=== PATIENT | female | born 1965 | race Caucasian/White ===

== ENCOUNTER 2023-12-23 21:03 | Emergency (ER) | payer BC, SELFPAY ==
[2023-12-23 21:09] VITALS: BP 156/79; PULSE 97; TEMP 36.7; O2SAT 91; BMI 29.4
--- NOTE | 2023-12-23 21:16 | ED_ITS ---
HPI - Wound/Laceration General Chief Complaint: Wound/Laceration Stated Complaint: HEAD INJURY Time Seen by Provider: 12/23/23 21:10 Source: patient Mode of arrival: walk-in Limitations: no limitations History of Present Illness HPI narrative: 58-year-old female presents to the ER for evaluation of laceration to her scalp. Patient was at home when a metal aluminum level fell off a shelf and struck her in the head. She does not take any blood thinners. She denies any other head injury or loss of consciousness. No visual disturbance. She denies any nausea or vomiting. Bleeding controlled on arrival but a 3 cm linear laceration noted to the top of her head. Patient had a updated tetanus shot within the year. She denies any neck pain or other symptoms. Place: Reports home Patient tetanus UTD: Yes Context: Reports accidental Associated symptoms: Reports none Related Data Allergies Allergy/AdvReac Type Severity Reaction Status Date / Time Penicillins Allergy Unknown Unknown Verified 12/23/23 21:15 Review of Systems ROS Constitutional Denies: fever or chills Eyes Denies: change in vision Ears, nose, mouth, and throat Denies: throat pain or neck pain Cardiovascular Denies: chest pain or palpitations Respiratory Denies: shortness of breath Gastrointestinal Denies: abdominal pain or nausea Musculoskeletal Denies: back pain or neck pain Integumentary/Breast Denies: rash Neurological Denies: headache Psychiatric Denies: anxiety Exam Narrative Exam Narrative: Nurses notes and vital signs reviewed and patient is not hypoxic. General: The patient appears well and in no apparent distress. Patient is resting comfortably on cart. Skin: Warm, dry, no pallor noted. Head: Normocephalic, 3 cm linear scalp laceration to the top of the head. Bleeding controlled Neck: Supple, trachea mid-line, no tenderness, no lymphadenopathy Eye: Pupils are equal, round and reactive to light, EOMI Ears, Nose, Mouth, and Throat: TM are clear, normal light reflex, oral mucosa is moist, no posterior oropharynx erythema or hypertrophy, uvula is mid-line Cardiovascular: Regular Rate and Rhythm Respiratory: Patient is in no distress, no accessory muscle use, lungs are clear to auscultation, no wheezing, rales or rhonchi. Chest Wall: no tenderness Back: non-tender, no CVA tenderness Musculoskeletal: normal ROM, no tenderness, no swelling GI: Normal bowel sounds, no tenderness to palpation, no masses appreciated. No rebound, guarding, or rigidity noted. Neurological: A&O x4, gait is steady Psychiatric: Cooperative Constitutional Vital Signs, click to edit/add: Last Vital Signs Temp 98.1 F 12/23/23 21:09 Pulse 97 H 12/23/23 21:09 Resp 16 12/23/23 21:09 BP 156/79 H 12/23/23 21:09 Pulse Ox 91 L 12/23/23 21:09 Course Vital Signs Vital signs: Vital Signs Temperature 98.1 F 12/23/23 21:09 Pulse Rate 97 H 12/23/23 21:09 Respiratory Rate 16 12/23/23 21:09 Blood Pressure 156/79 H 12/23/23 21:09 Pulse Oximetry 91 L 12/23/23 21:09 Temperature 98.1 F 12/23/23 21:09 Pulse Rate 97 H 12/23/23 21:09 Respiratory Rate 16 12/23/23 21:09 Blood Pressure 156/79 H 12/23/23 21:09 Pulse Oximetry 91 L 12/23/23 21:09 MDM - Wound/Laceration MDM Narrative Medical decision making narrative: Patient presents with isolated scalp laceration from an object that was somewhat sharp falling off a shelf striking her in the head. She denies any loss of consciousness. Verbal and written close head injury instructions were discussed. Family at the bedside will be with her this evening. She is not short of breath and appears in no distress. Head imaging with CT discussed but does not require imaging with observation and benign exam. Patient agreeable to staple closure with follow-up to PCP for removal in 10 to 12 days. verbal and written head injury instructions discussed The patient is to followup with primary care physician in next 10-12 days or to return to the emergency department should any of the signs or symptoms worsen or new symptoms develop. Patient had questions answered. The patient agrees with the following Diagnosis and Treatment plan and the patient will be discharged home. Discharge Plan Discharge Chief Complaint: Wound/Laceration Clinical Impression: Laceration of scalp, Closed head injury Patient Disposition: Home, Self-Care Time of Disposition Decision: 21:22 Condition: Good Print Language: [place] Instructions: Laceration (ED), Head Injury (DC) Additional Instructions: Return to the ER or make appointment with your family doctor for staple removal in 10 to 12 days Referrals: Physician,Non-Staff, MD [Primary Care Provider] - 1 week Discharge Date/Time: 12/23/23 21:46 Procedures ED Laceration Laceration Laceration 1: Additional comments: Laceration repair: Done under sterile conditions. The use of Betadine was used to prep and clean the area. Top of scalp, Local injection with lidocaine 1% with epi was used, approximately 3 cc. The wound was irrigated copiously with normal saline. The wound was explored there was no evidence of foreign material. The laceration was approximated with gaurang . Patient tolerated the procedure well. The patient was neurovascularly intact post. the patient had bacitracin applied to the laceration and a dry sterile dressing was place. The patient will need to follow-up in the next 10-12 days for staple removal.
[2023-12-23] MEDS: LIDOCAINE HCL 1%-EPINEPHRINE 1:100,000 20 ML MDV 10 ML INJ (21:39)
[2023-12-23] MEDS: BACITRACIN 0.9 GM PACKET 1 PACKET TOPICAL (21:40)
== END 2023-12-23 21:46 | disposition home or self-care (01) ==
PROVIDERS: Emergency Provider Internal Medicine
DX: S01.01XA Laceration without foreign body of scalp, initial encounter (principal); S09.8XXA Other specified injuries of head, initial encounter; W22.8XXA Striking against or struck by other objects, initial encounter
CPT/HCPCS: 12002; 99282

== ENCOUNTER 2023-12-26 17:10 | Emergency (ER) | payer BC, SELFPAY ==
[2023-12-26] VITALS (46 sets, daily range): BP systolic 121–166; BP diastolic 49–88; PULSE 72–98; TEMP 36.8; O2SAT 84–96; BMI 29.4
--- NOTE | 2023-12-26 17:22 | CT_ITS ---
The [address] [address] Patient Name: ASHLEIGH ZHAO MRN: [id number] date: 1965 Sex: F Assigned Patient Location: ER Current Patient Location: ER Accession/Order Number: [id number] Exam Date: 12/26/2023 17:35 Report Date: 12/26/2023 18:13 At the request of: LANDRY HUMMEL Procedure: CT head/brain wo con EXAM: CT head/brain wo con, CT cervical spine wo con HISTORY: trauma COMPARISON: None. TECHNIQUE: Axial CT scans through the head and cervical spine were obtained without IV contrast administration. Dose reduction techniques were achieved by using: automated exposure control and/or adjustment of mA and /or kV according to patient size and/or use of iterative reconstruction technique. CT BRAIN FINDINGS: There is no evidence of acute intracranial hemorrhage or abnormal extra-axial fluid collection. No mass effect or midline shift is seen. There is no evidence of large acute territorial infarction. There is no hydrocephalus. No definite acute fracture is identified. Soft tissues are unremarkable. The visualized orbits show no abnormality. The visualized paranasal sinuses show no air-fluid level. Mastoid air cells are clear. CT/CT head/brain wo con IMPRESSION: No CT evidence of acute intracranial abnormality. CT CERVICAL SPINE FINDINGS: No acute fracture or posttraumatic malalignment is seen. The dens and lateral masses of C1 are symmetric. There is mild anterolisthesis of C5 on C6 and mild dextroscoliosis. Multilevel mild endplate, uncovertebral and facet arthrosis are seen. Findings are most pronounced at C5-6 level. There is minimal disc space narrowing at C5-6 level. Otherwise, the disc spaces are grossly preserved. At C3-C4 level, there is a small central/left paracentral disc protrusion. No significant spinal canal narrowing. There is neural foraminal narrowing, moderate at left C3-4 and mild at right C3-4, secondary to uncovertebral and facet arthropathy. At C4-5 level, there is a small central disc protrusion. No significant spinal canal narrowing. There is neural foraminal narrowing, moderate at left C4-5 and mild at right C4-5, secondary to uncovertebral and facet arthropathy. At C5-6 level, there is small posterior disc osteophyte complex. No significant spinal canal narrowing. There is neural foraminal narrowing, moderate at right C5-6 and mild at left C5-6, secondary to uncovertebral and facet arthropathy. The prevertebral soft tissue space appears normal. Visualized lung apices are clear. There is a 6 mm low-attenuation nodule in the right thyroid lobe. IMPRESSION: No visualized acute cervical spine abnormality. Multilevel mild to moderate cervical spondylosis, as detailed above. Incidental small low-attenuation nodule in the right thyroid lobe. Recommend nonemergent thyroid ultrasound for further evaluation. Electronically authenticated by: ALYCIA ESCOBAR Date: 12/26/2023 18:13
--- NOTE | 2023-12-26 17:25 | CT_ITS ---
The [address] [address] Patient Name: ASHLEIGH ZHAO MRN: [id number] date: 1965 Sex: F Assigned Patient Location: ER Current Patient Location: ER Accession/Order Number: [id number] Exam Date: 12/26/2023 17:35 Report Date: 12/26/2023 18:13 At the request of: SHUKRI HIDALGO Procedure: CT cervical spine wo con EXAM: CT head/brain wo con, CT cervical spine wo con HISTORY: trauma COMPARISON: None. TECHNIQUE: Axial CT scans through the head and cervical spine were obtained without IV contrast administration. Dose reduction techniques were achieved by using: automated exposure control and/or adjustment of mA and /or kV according to patient size and/or use of iterative reconstruction technique. CT BRAIN FINDINGS: There is no evidence of acute intracranial hemorrhage or abnormal extra-axial fluid collection. No mass effect or midline shift is seen. There is no evidence of large acute territorial infarction. There is no hydrocephalus. No definite acute fracture is identified. Soft tissues are unremarkable. The visualized orbits show no abnormality. The visualized paranasal sinuses show no air-fluid level. Mastoid air cells are clear. CT/CT cervical spine wo con IMPRESSION: No CT evidence of acute intracranial abnormality. CT CERVICAL SPINE FINDINGS: No acute fracture or posttraumatic malalignment is seen. The dens and lateral masses of C1 are symmetric. There is mild anterolisthesis of C5 on C6 and mild dextroscoliosis. Multilevel mild endplate, uncovertebral and facet arthrosis are seen. Findings are most pronounced at C5-6 level. There is minimal disc space narrowing at C5-6 level. Otherwise, the disc spaces are grossly preserved. At C3-C4 level, there is a small central/left paracentral disc protrusion. No significant spinal canal narrowing. There is neural foraminal narrowing, moderate at left C3-4 and mild at right C3-4, secondary to uncovertebral and facet arthropathy. At C4-5 level, there is a small central disc protrusion. No significant spinal canal narrowing. There is neural foraminal narrowing, moderate at left C4-5 and mild at right C4-5, secondary to uncovertebral and facet arthropathy. At C5-6 level, there is small posterior disc osteophyte complex. No significant spinal canal narrowing. There is neural foraminal narrowing, moderate at right C5-6 and mild at left C5-6, secondary to uncovertebral and facet arthropathy. The prevertebral soft tissue space appears normal. Visualized lung apices are clear. There is a 6 mm low-attenuation nodule in the right thyroid lobe. IMPRESSION: No visualized acute cervical spine abnormality. Multilevel mild to moderate cervical spondylosis, as detailed above. Incidental small low-attenuation nodule in the right thyroid lobe. Recommend nonemergent thyroid ultrasound for further evaluation. Electronically authenticated by: ALYCIA ESCOBAR Date: 12/26/2023 18:13
--- NOTE | 2023-12-26 17:25 | ED_ITS ---
HPI HPI - Head Injury General Chief complaint: Head Injury Stated complaint: head injury Time Seen by Provider: 12/26/23 17:17 Source: patient Mode of arrival: walk-in Limitations: no limitations History of Present Illness HPI Narrative: 58 year old female presents to the ED for dizziness, AMS. States she feels foggy. Reports it has been getting worse since yesterday. She was evaluated in the ED 12/23/23 for a head injury. States a heavy object fell onto her head. She had gaurang placed here in the ED. Denies LOC, vision changes, weakness. Denies emesis. Reports nausea. Denies neck and back pain. She had an unremarkable neuro exam at previous visit; imaging was deferred at that time. Related Data Previous Rx's ?Medication ?Instructions ?Recorded azithromycin 500 mg tablet 500 mg PO DAILY 5 days #5 tabs 12/26/23 (Zithromax) potassium chloride 20 mEq 20 meq PO DAILY #7 tabs 12/26/23 tablet,extended release Allergies Allergy/AdvReac Type Severity Reaction Status Date / Time Penicillins Allergy Unknown Unknown Verified 12/23/23 21:15 Opioid HPI Opioid Management Most Recent Pain and Opioid Data: Last Pain Scale 9 12/26/23 18:59 12/26/23 Last MAR Pain Assessment 12/26/23 18:59 Review of Systems ROS Constitutional Denies: fever or chills Eyes Denies: change in vision, blurry vision or light sensitivity Ears, nose, mouth, and throat Denies: neck pain Cardiovascular Denies: chest pain Respiratory Denies: shortness of breath Gastrointestinal Reports: nausea; Denies: abdominal pain or vomiting Musculoskeletal Denies: back pain, neck pain or extremity pain Neurological Reports: headache, dizziness and difficulty communicating thoughts; Denies: numbness in extremities, weakness in extremities, lack of coordination or slurred speech Exam Constitutional Vital Signs, click to edit/add: Last Vital Signs Temp 98.3 F 12/26/23 17:13 Pulse 72 12/26/23 20:10 Resp 22 H 12/26/23 20:10 BP 128/54 12/26/23 20:00 Pulse Ox 94 L 12/26/23 20:10 O2 Del Method Room Air 12/26/23 18:39 O2 Flow Rate 2 12/26/23 18:39 Common normals: no apparent distress General appearance: cooperative Eye Common normals: PERRL, EOMs intact bilaterally, conjunctivae normal and no scleral icterus Neck & C-Spine Common normals: supple General: trachea midline Cervical spine: paracervical muscle tenderness; no cervical spine tenderness Chest Chest: symmetrical chest wall rise Respiratory Common normals: normal respiratory effort Effort & inspection: able to speak in complete sentences and symmetric chest movement Cardio Common normals: regular rate Neuro Common normals: oriented x3, CN's II-XII intact bilaterally and moves all extremities Sensorium/orientation: awake and alert Coordination/balance: [id number] test normal Speech: speech normal Motor exam: strength 5/5 throughout Other: Pt slow to answer some questions, but does answer appropriately. Speech clear. Psych Attitude: calm Speech: slow Course Vital Signs Vital signs: Vital Signs Temperature 98.3 F 12/26/23 17:13 Pulse Rate 95 H 12/26/23 17:13 Respiratory Rate 16 12/26/23 17:13 Blood Pressure 166/63 H 12/26/23 17:13 Pulse Oximetry 93 L 12/26/23 17:13 Oxygen Delivery Method Room Air 12/26/23 17:13 Temperature 98.3 F 12/26/23 17:13 Pulse Rate 72 12/26/23 20:10 Respiratory Rate 22 H 12/26/23 20:10 Blood Pressure 128/54 12/26/23 20:00 Pulse Oximetry 94 L 12/26/23 20:10 Oxygen Delivery Method Room Air 12/26/23 18:39 Oxygen Delivery Flow Rate 2 12/26/23 18:39 MDM - Head Injury MDM Narrative Medical decision making narrative: Pt presented to the ED with dizziness, nausea, brain fog after having a head injury on 12/23/23. CT scans today were negative for acute findings. Pt's potassium was 2.8 which was treated. Chest x-ray showed concerns for pneumonia which will be treated. Pt's oxygen dropped to 88% while sleeping which she is aware of. Pt is a smoker. Findings were discussed with the patient and her family member. Prescriptions were provided for Potassium and Zithromax. Follow up with pcp for a recheck, further evaluation and treatment. Return precautions were discussed. Differential Diagnosis Differential diagnosis: Likely concussion without loss of consciousness, closed head injury, subarachnoid hematoma, postconcussion syndrome and subdural hematoma Medical Records Attestation: I reviewed the patient's medical records. Lab Data Attestation: I reviewed the patient's lab results. Labs: Lab Results 12/26/23 12/26/23 Range/Units 17:35 18:41 WBC 11.7 H (4.0-11.0) 10^3/uL RBC 4.70 (4.20-5.40) 10^6/uL Hgb 16.0 (12.0-16.0) g/dL Hct 45.7 (36.0-48.0) % MCV 97.2 (81.0-99.0) fL MCH 34.0 (26.7-34.0) pg MCHC 35.0 (29.9-35.2) g/dL RDW 18.2 H (11.0-15.0) % Plt Count 201 (150-450) 10^3/uL MPV 10.4 (9.5-13.5) fL Neut % (Auto) 72.7 (43.0-75.0) % Lymph % (Auto) 17.5 L (20.5-60.0) % [place] % (Auto) 6.4 (1.7-12.0) % Eos % (Auto) 2.4 (0.9-7.0) % Baso % (Auto) 0.6 (0.2-2.0) % Neut # (Auto) 8.5 H (1.4-6.5) 10^3/uL Lymph # (Auto) 2.1 (1.2-3.8) 10^3/uL [place] # (Auto) 0.8 (0.3-0.8) 10^3/uL Eos # (Auto) 0.3 (0.0-0.7) 10^3/uL Baso # (Auto) 0.1 (0.0-0.1) 10^3/uL Abs Immat Gran (auto) 0.05 H (0.00-0.03) 10^3/uL Imm/Tot Granulo (auto) 0.4 (0.0-0.5) % VBG pH 7.433 H (7.330-7.430) VBG pCO2 47.7 (40.0-52.0) mmHg Sodium 144 (136-145) mmol/L Potassium 2.8 L* (3.5-5.1) mmol/L Chloride 104 (98-107) mmol/L Carbon Dioxide 29.1 (21.0-32.0) mmol/L Anion Gap 13.7 BUN 10.0 (7.0-18.0) mg/dL Creatinine 0.76 (0.55-1.02) mg/dL Est GFR ( Amer) >60 (>=60 mL/min/1.73m^2) Est GFR (Non-Af Amer) >60 (>=60 mL/min/1.73m^2) BUN/Creatinine Ratio 13.2 Glucose 96 (74-106) mg/dL Calcium 8.9 (8.5-10.1) mg/dL Total Bilirubin 0.6 (0.2-1.0) mg/dL AST 14 L (15-37) U/L ALT 17 (14-59) U/L Alkaline Phosphatase 99 (46-116) U/L Total Protein 6.3 L (6.4-8.2) g/dL Albumin 3.5 (3.4-5.0) g/dL Globulin 2.8 g/dL Albumin/Globulin Ratio 1.2 Ethanol Quant <3 mg/dL Imaging Data CT scan - head: Attestation: I have reviewed the pertinent imaging results. Radiologist's impression: ITS Impressions Head CT 12/26/23 17:22 IMPRESSION: No CT evidence of acute intracranial abnormality. CT CERVICAL SPINE FINDINGS: No acute fracture or posttraumatic malalignment is seen. The dens and lateral masses of C1 are symmetric. There is mild anterolisthesis of C5 on C6 and mild dextroscoliosis. Multilevel mild endplate, uncovertebral and facet arthrosis are seen. Findings are most pronounced at C5-6 level. There is minimal disc space narrowing at C5-6 level. Otherwise, the disc spaces are grossly preserved. At C3-C4 level, there is a small central/left paracentral disc protrusion. No significant spinal canal narrowing. There is neural foraminal narrowing, moderate at left C3-4 and mild at right C3-4, secondary to uncovertebral and facet arthropathy. At C4-5 level, there is a small central disc protrusion. No significant spinal canal narrowing. There is neural foraminal narrowing, moderate at left C4-5 and mild at right C4-5, secondary to uncovertebral and facet arthropathy. At C5-6 level, there is small posterior disc osteophyte complex. No significant spinal canal narrowing. There is neural foraminal narrowing, moderate at right C5-6 and mild at left C5-6, secondary to uncovertebral and facet arthropathy. The prevertebral soft tissue space appears normal. Visualized lung apices are clear. There is a 6 mm low-attenuation nodule in the right thyroid lobe. IMPRESSION: No visualized acute cervical spine abnormality. Multilevel mild to moderate cervical spondylosis, as detailed above. Incidental small low-attenuation nodule in the right thyroid lobe. Recommend nonemergent thyroid ultrasound for further evaluation. Electronically authenticated by: [facility] Date: 12/26/2023 18:[address] 12/26/23 17:25 IMPRESSION: No CT evidence of acute intracranial abnormality. CT CERVICAL SPINE FINDINGS: No acute fracture or posttraumatic malalignment is seen. The dens and lateral masses of C1 are symmetric. There is mild anterolisthesis of C5 on C6 and mild dextroscoliosis. Multilevel mild endplate, uncovertebral and facet arthrosis are seen. Findings are most pronounced at C5-6 level. There is minimal disc space narrowing at C5-6 level. Otherwise, the disc spaces are grossly preserved. At C3-C4 level, there is a small central/left paracentral disc protrusion. No significant spinal canal narrowing. There is neural foraminal narrowing, moderate at left C3-4 and mild at right C3-4, secondary to uncovertebral and facet arthropathy. At C4-5 level, there is a small central disc protrusion. No significant spinal canal narrowing. There is neural foraminal narrowing, moderate at left C4-5 and mild at right C4-5, secondary to uncovertebral and facet arthropathy. At C5-6 level, there is small posterior disc osteophyte complex. No significant spinal canal narrowing. There is neural foraminal narrowing, moderate at right C5-6 and mild at left C5-6, secondary to uncovertebral and facet arthropathy. The prevertebral soft tissue space appears normal. Visualized lung apices are clear. There is a 6 mm low-attenuation nodule in the right thyroid lobe. IMPRESSION: No visualized acute cervical spine abnormality. Multilevel mild to moderate cervical spondylosis, as detailed above. Incidental small low-attenuation nodule in the right thyroid lobe. Recommend nonemergent thyroid ultrasound for further evaluation. Electronically authenticated by: ALYCIA ESCOBAR Date: 12/26/2023 18:13 Chest X-Ray 12/26/23 18:35 Impression: Left basilar opacity, may represent atelectasis and/or consolidation. Follow-up is recommended. Electronically authenticated by: KWAN WILDE Date: 12/26/2023 21:06 ECG Data Attestation: ?I have reviewed the pertinent ECG results. (EKG was reviewed by the attending physician. It showed sinus rhythm at a rate of 95. No acute ST segment changes.) Interpretation: Measurements Intervals [place] Rate: 95 P: 64 ND: 158 QRS: 15 QRSD: 96 T: 57 QT: 366 QTc: 419 Interpretive Statements 1100 Sinus rhythm 2440 Incomplete right bundle branch block 6220 Possible left atrial enlargement 9130 borderline ECG No previous ECG available for comparison Discharge Plan Discharge Chief Complaint: Head Injury Clinical Impression: Hypokalemia, Pneumonia, Concussion Patient Disposition: Home, Self-Care Time of Disposition Decision: 21:39 Condition: Good Mode of Transportation: Private Vehicle Prescriptions / Home Meds: New potassium chloride 20 mEq tablet extended release 20 meq PO DAILY Qty: 7 0RF azithromycin [Zithromax] 500 mg tablet 500 mg PO DAILY 5 Days Qty: 5 0RF Print Language: [place] Instructions: Hypokalemia (ED), Concussion (ED), Community Acquired Pneumonia (ED) Additional Instructions: Return to the ER for new or worsening symptoms. Referrals: Physician,Non-Staff, MD [Primary Care Provider] - 1 week
[2023-12-26 18:20] LABS: Basophils Absolute Auto 0.1 10^3/uL (0.0-0.1); Basophils Percent Auto 0.6 % (0.2-2.0); Eosinophils Absolute Auto 0.3 10^3/uL (0.0-0.7); Eosinophils Percent Auto 2.4 % (0.9-7.0); Hematocrit 45.7 % (36.0-48.0); Immature Granulocytes Abs Auto 0.05 10^3/uL (0.00-0.03); Immature Granulocytes Pct Auto 0.4 % (0.0-0.5); Lymphocytes Absolute Auto 2.1 10^3/uL (1.2-3.8); Lymphocytes Percent Auto 17.5 % (20.5-60.0); Mean Corpuscular Volume 97.2 fL (81.0-99.0); Mean Platelet Volume 10.4 fL (9.5-13.5); Monocytes Absolute Auto 0.8 10^3/uL (0.3-0.8); Monocytes Percent Auto 6.4 % (1.7-12.0); Neutrophils Absolute Auto 8.5 10^3/uL (1.4-6.5); Neutrophils Percent Auto 72.7 % (43.0-75.0); Platelet Count 201 10^3/uL (150-450); Red Cell Distribution Width 18.2 % (11.0-15.0); White Blood Count 11.7 10^3/uL (4.0-11.0)
--- NOTE | 2023-12-26 18:35 | XR_ITS ---
The [place] [id number] Patient Name: ASHLEIGH ZHAO MRN: [id number] date: 1965 Sex: F Assigned Patient Location: ER Current Patient Location: ED.MAIN Accession/Order Number: [id number] Exam Date: 12/26/2023 18:38 Report Date: 12/26/2023 21:06 At the request of: SHUKRI HIDALGO Procedure: XR chest 1V EXAM: XR chest 1V HISTORY: AMS COMPARISON: None. TECHNIQUE: Chest X-ray AP, 1 view FINDINGS: Support devices: None. Lungs/pleura: No effusion, or pneumothorax. Left basilar opacity, may represent atelectasis and/or consolidation. Follow-up is recommended. Heart and mediastinum: Normal contours. Bones: No acute abnormality identified. XR/XR chest 1V Impression: Left basilar opacity, may represent atelectasis and/or consolidation. Follow-up is recommended. Electronically authenticated by: KWAN WILDE Date: 12/26/2023 21:06
[2023-12-26 18:36] LABS: Alanine Aminotransferase 17 U/L (14-59); Albumin Globulin Ratio 1.2; Albumin Level 3.5 g/dL (3.4-5.0); Alkaline Phosphatase 99 U/L (46-116); Anion Gap 13.7; Aspartate Amino Transferase 14 U/L (15-37); BUN Creatinine Ratio 13.2; Bilirubin Total 0.6 mg/dL (0.2-1.0); Calcium 8.9 mg/dL (8.5-10.1); Carbon Dioxide 29.1 mmol/L (21.0-32.0); Chloride 104 mmol/L (98-107); Estimated GFR (African America >60 (>=60 mL/min/1.73m^2); Estimated GFR (Non-African Ame >60 (>=60 mL/min/1.73m^2); Globulin 2.8 g/dL; Glucose 96 mg/dL (74-106); Sodium 144 mmol/L (136-145); Total Protein 6.3 g/dL (6.4-8.2)
[2023-12-26 18:37] LABS: Ethanol <3 mg/dL
[2023-12-26 18:38] LABS: Potassium 2.8 mmol/L (3.5-5.1)
[2023-12-26 18:48] LABS: PCO2 VBG 47.7 mmHg (40.0-52.0); pH VBG 7.433 (7.330-7.430)
[2023-12-26] MEDS: DEXAMETHASONE SOD PHOS 10 MG/ML VIAL IV (18:59)
[2023-12-26] MEDS: ACETAMINOPHEN 500 MG TABLET 1000 MG PO (18:59)
[2023-12-26] MEDS: METOCLOPRAMIDE HCL 10 MG/2 ML VIAL IVP (18:59)
[2023-12-26] MEDS: POTASSIUM CHLORIDE 10 MEQ/100 ML WATER PREMIX 100 MEQ IV ×4 (19:00→21:56)
--- NOTE | 2023-12-26 19:24 | ECG_ITS ---
The [facility] Test Date: 2023-12-26 Pat Name: ASHLEIGH ZHAO Department: Room: - Gender: Female [employer]: : 1965 Requested By: [id number] Order Number: [id number] Reading MD: LAURENCE FLOYD Measurements Intervals [place] Rate: 95 P: 64 GA: 158 QRS: 15 QRSD: 96 T: 57 QT: 366 QTc: 419 Interpretive Statements 1100 Sinus rhythm 2440 Incomplete right bundle branch block 6220 Possible left atrial enlargement 9130 borderline ECG No previous ECG available for comparison Electronically Signed On 12-26-2023 22:44:00 EST by LAURENCE FLOYD
[2023-12-26] MEDS: 0.9 % SODIUM CHLORIDE 1,000 ML 1000 ML IV (20:12)
== END 2023-12-26 23:33 | disposition home or self-care (01) ==
PROVIDERS: Nurse Practitioner Family; Emergency Provider Emergency Medicine
DX: S06.0X0A Concussion without loss of consciousness, initial encounter (principal); J18.9 Pneumonia, unspecified organism; E87.6 Hypokalemia; M47.812 Spondylosis without myelopathy or radiculopathy, cervical region; F17.200 Nicotine dependence, unspecified, uncomplicated; W22.8XXA Striking against or struck by other objects, initial encounter
CPT/HCPCS: 36415; 70450; 71045; 72125; 80053; 80307; 80320; 82800; 85025; 93005; 96365; 96366; 96375; 99285; J1100; J2765; J3480